=== PATIENT | male | born 2000 | race Caucasian/White ===

== ENCOUNTER 2022-10-05 19:21 | Emergency (ER) | payer OTHER ==
[2022-10-05 19:58] LABS: RAPID STREP SCREEN POSITIVE (Negative)
[2022-10-05] MEDS: DEXAMETHASONE 10 MG/ML VIAL PO STA (20:38)
--- NOTE | 2022-10-05 20:46 | ED Physician Documentation ---
History of Present Illness - Stated complaint Stated Complaint: THROAT PX - Chief complaint Chief Complaint: Resp - History obtained from History obtained from: Patient - Additonal information Additional information: 22-year-old male who presented with sore throat, body aches, fever which started fairly suddenly today. The patient states few days ago he had some mild cold symptoms but they seem to be resolving and then the symptoms came on suddenly today with of substantial increase in sore throat, body aches and fever. He has not had any respiratory distress, no chest pain, no abdominal pain, no nausea vomiting or diarrhea. He has not attempted any medication for this. No known sick contacts Review of Systems Ten Systems: 10 systems reviewed and negative (Except as per HPI) PD PAST MEDICAL HISTORY - Past Medical History Past Medical History: No - Present Medications Home Medications: Ambulatory Orders Medication Instructions Recorded Confirmed No Known Home Medications 10/05/22 10/05/22 - Allergies Allergies/Adverse Reactions: Allergies Allergy/AdvReac Type Severity Reaction Status Date / Time No Known Drug Allergies Allergy Verified 10/05/22 19:37 PD ED PE NORMAL - Vitals Vital signs reviewed: Yes - General General: Alert and oriented X 3, No acute distress, Well developed/nourished - HEENT HEENT: Atraumatic, Ears normal, Moist mucous membranes, Other (2+ tonsils bilaterally, trace exudate, mildly reddened. Uvula is midline, no signs of peritonsillar abscess) - Neck Neck: Supple, no meningeal sign, Other (Small bilateral anterior cervical and lymphadenopathy) - Cardiac Cardiac: RRR, No murmur - Respiratory Respiratory: No respiratory distress, Clear bilaterally - Derm Derm: Normal color, Warm and dry, No rash - Neuro Neuro: Alert and oriented X 3 Eye Opening: Spontaneous Motor: Obeys Commands Verbal: Oriented GCS Score: 15 Results - Vitals Vitals: Vital Signs - 24 hr 10/05/22 19:33 Temperature 37.5 C Heart Rate 98 Respiratory 18 Rate Blood Pressure 150/65 H O2 Saturation 99 Oxygen O2 Source Room air - Labs Labs: Laboratory Tests 10/05/22 19:40 Group A Strep Rapid POSITIVE H PD MEDICAL DECISION MAKING - ED course Complexity details: reviewed results, d/w patient ED course: Patient presented with sudden onset sore throat, body aches and fever today. We obtained a strep test which was positive and this is likely the Because of his symptoms. He has no cough or other URI symptoms at this time and is otherwise well-appearing, he has no signs of retropharyngeal abscess or peritonsillar abscess. I discussed with patient the treatment options for positive strep test which her 10 days of penicillin or amoxicillin or a shot of penicillin G and patient would like to take the shot as he states he is not reliable with medication. We will give him 1,200,000 units IM here and he will receive 10 mg of oral Decadron to help with his pain. He was advised that he can continue ibuprofen and Tylenol for sore throat over the next few days and he was encouraged to stay well-hydrated. I advised patient that he is contagious for next 24 hours and should stay home from work and/or school and avoid sharing food or cigarettes other people. Return precautions reviewed if new or worsening symptoms. Departure - Departure Disposition: 01 Home, Self Care Clinical Impression: Strep throat Condition: Good Instructions: ED Strep Pharyngitis Conf Comments: He presented with sore throat, body aches and fever. Here strep test was positive For strep throat Which can also cause body aches and fever. We gave you a single dose of steroids which can help with your throat pain and also a shot of penicillin which is one of the treatments for strep throat. You do not need any additional antibiotics as this is a long-acting antibiotic that you were given. You can continue to take ibuprofen or Tylenol for pain and recommend that he stay well-hydrated and get plenty of rest. You can return to work Or school after 24 hours. Forms: Activity restrictions
[2022-10-05] MEDS: CHERRY SYRUP 10 ML UDC PO ONE (20:53)
[2022-10-05] MEDS: PENICILLIN G BENZATHINE 600,000 UNIT/ML SYRINGE IM STA (20:53)
[2022-10-06 00:10] VITALS: BP 142/56
== END 2022-10-05 21:15 | disposition home or self-care (01) ==
LOC: ED 19:21
DX: J02.0 Streptococcal pharyngitis (principal)
CPT/HCPCS: 87430; 96372; 99282; 99283; A9270

== ENCOUNTER 2023-09-15 18:47 | Emergency (ER) | payer OTHER ==
[2023-09-15 19:10] VITALS: BP 139/59; O2SAT 100
[2023-09-15] MEDS ORDERED: FLUCONAZOLE 100 MG TABLET PO STA (21:09)
--- NOTE | 2023-09-15 21:12 | ED Physician Documentation ---
History of Present Illness - Stated complaint Stated Complaint: - Chief complaint Chief Complaint: General - History obtained from History obtained from: Patient - History of Present Illness Timing: Today Pain level max: 0 Pain level now: 0 - Additonal information Additional information: 23-year-old male presents to the emergency department with a scrotal rash for the past several days. Described as itchy. He is concerned about potential STDs. He states he did have sex with a new partner and did wear a condom. Nothing makes it better or worse. [place]. No dysuria, no urethral discharge. Review of Systems Constitutional: denies: Fever, Chills GI: denies: Nausea, Vomiting, Diarrhea Skin: denies: Rash Musculoskeletal: denies: Neck pain, Back pain Neurologic: denies: Headache PD PAST MEDICAL HISTORY - Past Medical History Past Medical History: No - Past Surgical History Past Surgical History: No - Present Medications Home Medications: Ambulatory Orders Medication Instructions Recorded Confirmed Nystatin/Triamcin 1 applic TP BID #1 each 09/15/23 [Nystatin-Triamcinolone Ointm] Terbinafine [Lamisil] 250 mg PO DAILY #14 tablet 09/15/23 - Allergies Allergies/Adverse Reactions: Allergies Allergy/AdvReac Type Severity Reaction Status Date / Time No Known Drug Allergies Allergy Verified 10/05/22 19:37 - Social History Does the pt smoke?: No Smoking Status: Never smoker Does the pt drink ETOH?: No Does the pt have substance abuse?: No - Immunizations Immunizations are current?: Yes - POLST Patient has POLST: No PD ED PE NORMAL - Vitals Vital signs reviewed: Yes - General General: Alert and oriented X 3, No acute distress - HEENT HEENT: PERRL, Moist mucous membranes - Neck Neck: Supple, no meningeal sign - Cardiac Cardiac: RRR, Strong equal pulses - Respiratory Respiratory: No respiratory distress, Clear bilaterally - Abdomen Abdomen: Soft, Non tender, Non distended - Male Male : Other (Normal-appearing penis, no discharge. No lymphadenopathy. There is erythema diffusely to the scrotum. No crepitus.) - Derm Derm: Warm and dry - Neuro Neuro: Alert and oriented X 3 - Psych Psych: Normal mood, Normal affect Results - Vitals Vitals: Vital Signs - 24 hr 09/15/23 18:55 Temperature 36.8 C Heart Rate 70 Respiratory 16 Rate Blood Pressure 139/59 H O2 Saturation 100 Oxygen O2 Source Room air - Labs Labs: Laboratory Tests 09/15/23 19:15 Chlam trachomat DNA PCR NEGATIVE N.gonorrhoeae DNA (PCR) NEGATIVE T. vaginalis (PCR) NEGATIVE PD Medical Decision Making - ED course Complexity details: reviewed results, re-evaluated patient, considered differential, d/w patient, d/w family ED course: Patient with what appears to be a fungal infection of the scrotum. No evidence of secondary cellulitis. No pain. No fevers. We will try on nystatin/triamcinolone cream. Oral terbinafine in case this is tinea cruris, atypical, was also given a dose of Diflucan here in case this is a candidal infection. Gonorrhea and Chlamydia testing are negative. This does not seem consistent with an STI. Does not appear to be a latex allergy. Patient will follow-up with his PCP for further care. Patient counseled regarding signs and symptoms for which I believe and urgent re-evaluation would be necessary. Patient with good understanding of and agreement to plan and is comfortable reji g home at this time This document was made in part using voice recognition software. While efforts are made to proofread this document, sound alike and grammatical errors may occur. Departure - Departure Disposition: 01 Home, Self Care Clinical Impression: Scrotal rash Condition: Good Instructions: ED Candidiasis Cutaneous Follow-Up: GITA DAILEY ARNP [Primary Care Provider] - Prescriptions: Terbinafine [Lamisil] 250 mg PO DAILY #14 tablet Nystatin/Triamcin [Nystatin-Triamcinolone Ointm] 1 applic TP BID #1 each Comments: Your prescriptions were sent to the [facility] pharmacy. We will trial you on 2 antifungal medications to see if this resolves your symptoms. Your STI testing is not yet resulted, we will call you if they are positive, but this does not ap pear consistent with an STI. As we discussed occasionally yeast infections can cause these reactions as well, your partner may want to be tested with her own physician. Forms: PCP List Discharge Date/Time: 09/15/23 21:35
[2023-09-15 21:50] LABS: CHLAMYDIA TRACHOMATIS DNA NEGATIVE (NEGATIVE); NEISSERIA GONORRHOEAE DNA NEGATIVE (NEGATIVE); TRICHOMONAS VAGINALIS DNA NEGATIVE (NEGATIVE)
== END 2023-09-15 21:35 | disposition home or self-care (01) ==
LOC: ED 18:47
DX: R21 Rash and other nonspecific skin eruption (principal)
CPT/HCPCS: 87491; 87591; 87661; 99283; A9270

== ENCOUNTER 2023-10-25 20:34 | Emergency (ER) | payer OTHER ==
[2023-10-25 20:52] VITALS: BP 130/66; O2SAT 99
[2023-10-25 22:19] LABS: B. PARAPERTUSSIS- RESP PCR PAN NOT DETECTED; B. PERTUSSIS- RESP PCR PANEL NOT DETECTED; C. PNEUMONIAE- RESP PCR PANEL NOT DETECTED; CORONAVIRUS 229E-RESP PCR NOT DETECTED; CORONAVIRUS HKU1-RESP PCR NOT DETECTED; CORONAVIRUS NL63-RESP PCR NOT DETECTED; CORONAVIRUS OC43-RESP PCR NOT DETECTED; HUMAN METAPNEUMOVIRUS NOT DETECTED; INFLUENZA A- RESP PCR PANEL NOT DETECTED; INFLUENZA B - RESP PCR PANEL NOT DETECTED; M. PNEUMONIAE- RESP PCR PANEL NOT DETECTED; PARAINFLUENZA VIRUS 1 NOT DETECTED; PARAINFLUENZA VIRUS 2 NOT DETECTED; PARAINFLUENZA VIRUS 3 NOT DETECTED; PARAINFLUENZA VIRUS 4 NOT DETECTED; RHINOVIRUS/ENTEROVIRUS DETECTED; RSV- RESP PCR PANEL NOT DETECTED; SARS-CoV-2 -RESP PCR PANEL NOT DETECTED
[2023-10-26] MEDS ORDERED: DEXAMETHASONE 10 MG/ML VIAL PO STA (00:25)
[2023-10-26] MEDS ORDERED: CHERRY SYRUP 10 ML UDC PO ONE (00:25)
--- NOTE | 2023-10-26 00:28 | ED Physician Documentation ---
PD HPI URI - Stated complaint Stated Complaint: BODY ACHES,COUGH - Chief complaint Chief Complaint: General - History obtained from History obtained from: Patient - History of Present Illness Timing - onset: How many days ago (7) Timing duration: Days (7) Timing details: Gradual onset, Still present Associated symptoms: Chills, Sweats, Nasal congestion, Rhinorrhea, Sore throat, Productive cough Improves by: Rest, Medication Similar symptoms before: Diagnosis (URI) Recently seen: Not recently seen - Additional information Additional information: 23-year-old Gavin Grover is on Accutane and has developed a cough and congestion. He has had significant enough coughing that he tried a cough suppressant which gave him some additional symptoms and he is concerned this may be from an interaction with Accutane. He reports 7 days of symptoms with coughing green phlegm. He does not have shortness of breath. He denies pain in his ears. He does have a bit of a sore throat. Despite being 1 week into the illness the patient feels his symptoms are worsening. Review of Systems Constitutional: reports: Myalgias, Fatigue. denies: Fever Eyes: denies: Decreased vision Ears: denies: Ear pain Nose: reports: Rhinorrhea / runny nose, Congestion Throat: reports: Sore throat Cardiac: denies: Chest pain / pressure, Palpitations Respiratory: reports: Cough. denies: Dyspnea GI: denies: Nausea, Vomiting, Constipation, Diarrhea : denies: Dysuria, Frequency Skin: denies: Rash Musculoskeletal: denies: Neck pain, Back pain, Extremity pain PD PAST MEDICAL HISTORY - Past Medical History Past Medical History: No - Past Surgical History Past Surgical History: No - Present Medications Home Medications: Ambulatory Orders Medication Instructions Recorded Confirmed ISOtretinoin [Amnesteem] 1 cap PO DAILY 10/25/23 10/25/23 Azithromycin [Zithromax] 250 mg PO DAILY #6 tablet 10/26/23 Benzonatate [Tessalon] 100 - 200 mg PO TID PRN #30 cap 10/26/23 - Allergies Allergies/Adverse Reactions: Allergies Allergy/AdvReac Type Severity Reaction Status Date / Time No Known Drug Allergies Allergy Verified 10/25/23 20:44 - Social History Does the pt smoke?: No Smoking Status: Never smoker Does the pt drink ETOH?: No Does the pt have substance abuse?: No - Immunizations Immunizations are current?: Yes - POLST Patient has POLST: No PD ED PE NORMAL - Vitals Vital signs reviewed: Yes (normal ) - General General: Alert and oriented X 3, No acute distress, Well developed/nourished, Other (voice is hoarse) - HEENT HEENT: Atraumatic, PERRL, EOMI, Ears normal, Moist mucous membranes, Other (mild posterior pharyngeal inflamation ) - Neck Neck: Supple, no meningeal sign, No bony TTP - Cardiac Cardiac: RRR, No murmur - Respiratory Respiratory: No respiratory distress, Clear bilaterally - Abdomen Abdomen: Soft, Non tender - Back Back: No CVA TTP, No spinal TTP - Derm Derm: Normal color, Warm and dry, No rash - Extremities Extremities: No deformity, No edema - Neuro Neuro: Alert and oriented X 3, career services coordinator 2-12 intact, No motor deficit, No sensory deficit, Normal speech Eye Opening: Spontaneous Motor: Obeys Commands Verbal: Oriented GCS Score: 15 - Psych Psych: Normal mood, Normal affect Results - Vitals Vitals: Vital Signs - 24 hr 10/25/23 20:44 Temperature 36.6 C Heart Rate 71 Respiratory 16 Rate Blood Pressure 130/66 O2 Saturation 99 Oxygen O2 Source Room air - Labs Labs: Laboratory Tests 10/25/23 20:18 Nasal Adenovirus (PCR) NOT DETECTED Nasal B. parapertussis DNA (PCR) NOT DETECTED Nasal Coronavir 229E PCR NOT DETECTED Nasal Coronavir HKU1 PCR NOT DETECTED Nasal Coronavir NL63 PCR NOT DETECTED Nasal Coronavir OC43 PCR NOT DETECTED Nasal Enterovir/Rhinovir PCR DETECTED A Nasal Influenza B PCR NOT DETECTED Nasal Influenza A PCR NOT DETECTED Nasal Parainfluen 1 PCR NOT DETECTED Nasal Parainfluen 2 PCR NOT DETECTED Nasal Parainfluen 3 PCR NOT DETECTED Nasal Parainfluen 4 PCR NOT DETECTED Nasal RSV (PCR) NOT DETECTED Nasal B.pertussis DNA PCR NOT DETECTED Nasal C.pneumoniae (PCR) NOT DETECTED [place] Human Metapneumo PCR NOT DETECTED Nasal M.pneumoniae (PCR) NOT DETECTED Nasal SARS-CoV-2 (PCR) NOT DETECTED PD Medical Decision Making - ED course Complexity details: considered differential, d/w patient ED course: 23-year-old male with cough and congestion has rhinovirus. He is on day 7 of his illness and the expectation would be improvement by this time and he is coughing up copious amounts of green phlegm. I have given him a dose of dexamethasone for his voice we will place him on some Tessalon Perles and give him a Z-Donnie to clean up his secondary infection. Departure - Departure Disposition: 01 Home, Self Care Clinical Impression: Condition involving rhinovirus Condition: Stable Instructions: Cold Virus Follow-Up: GITA DAILEY ARNP [Primary Care Provider] - Prescriptions: Benzonatate [Tessalon] 100 - 200 mg PO TID PRN #30 cap PRN Reason: Cough Azithromycin [Zithromax] 250 mg PO DAILY #6 tablet Comments: Gavin, today we found rhinovirus in your nasal secretions and this is the common cold. We would expect this to be nearly resolved at day 7 of the illness. You are coughing up green phlegm and we will place you on an antibiotic for that reason. I have E scribed a cough suppressant some Tessalon Perle to the [facility] in [place]. I did not find an interaction with either of these medicines with your Accutane.
== END 2023-10-26 00:47 | disposition home or self-care (01) ==
LOC: ED 20:34
DX: B34.8 Other viral infections of unspecified site (principal); Z11.52 Encounter for screening for COVID-19
CPT/HCPCS: 87633; 99283; A9270

== ENCOUNTER 2024-05-05 07:09 | Outpatient (CLI) | payer OTHER ==
--- NOTE | 2024-05-06 14:07 | MRI Report ---
Shoulder RT WO CLINICAL HISTORY: 24 years of age, Male, RT SHOULDER PAIN.. Comparison: No priors available Technique: Multiplanar, multisequence MRI of the right shoulder was performed without intravenous co ntrast. IV Contrast: Not Administered. Findings: Osseous acromial outlet: The acromioclavicular joint is unremarkable. Type II acromion on sagittal im aging. No os acromiale. No significant subacromial/subdeltoid bursal fluid. Rotator cuff muscles and tendons: The supraspinatus, infraspinatus, subscapularis, and teres minor ar e intact without evidence of tendinosis or tear. Muscles are intact without evidence of atrophy or edema. Labral and capsular structures: The visualized labrum appears intact on limited non-arthrogram sequen saleem. No paralabral cyst. Biceps tendon and anchor: The extra-articular biceps tendon is unremarkable. The intra-articular joselyn ps tendon is not well visualized, likely secondary to patient positioning. Osseous and cartilaginous structures: Bone marrow signal is within normal limits. No fracture or disl ocation. No focal chondral defects. Miscellaneous: No significant glenohumeral effusion. Mild subcoracoid bursitis. No intra-articular b odies. The remaining muscles are normal in bulk without evidence of atrophy or edema. IMPRESSION: Mild subcoracoid bursitis. Reviewed by: Court Plummer MD on 05/06/2024 2:06 PM PDT Approved by: Court Plummer MD on 05/06/2024 2:06 PM PDT Station ID: [id number]
== END 2024-05-05 07:10 | disposition home or self-care (01) ==
LOC: DI 07:09
PROVIDERS: ATTEND Nurse Practitioner Family
DX: M75.51 Bursitis of right shoulder (principal)

== ENCOUNTER 2024-06-20 07:49 | Outpatient (CLI) | payer OTHER | END 2024-06-20 07:50 | disposition home or self-care (01) | LOC: DI 07:49 | PROVIDERS: ATTEND Family Medicine | DX: R01.1 Cardiac murmur, unspecified (principal) | CPT/HCPCS: 93307 ==

== ENCOUNTER 2024-07-25 11:57 | Outpatient (CLI) | payer OTHER ==
--- NOTE | 2024-07-25 21:55 | Ultrasound Report ---
PROCEDURE: Chest INDICATIONS: BACK MASS TECHNIQUE: Real-time scanning was performed, targeting the patient directed area of palpable concern. Image docu mentation obtained. COMPARISON: None. FINDINGS: Multiple grayscale and color Doppler images of the patient directed palpable area concern localizing to the lower midline back correlates with a oval, wider than tall isoechoic to subcutaneous fat mass measuring 4.2 x 0.8 x 3.6 cm. No suspicious vascularity. Normal appearance of overlying skin. No evid ence for invasion into the underlying the cutaneous soft tissues. No abnormal fluid collection. IMPRESSION: Palpable area concern correlates with a lipoma. Recommend continued clinical surveillance and follow- up imaging as needed. Reviewed by: Morgan Thompson MD on 07/25/2024 8:53 PM [facility]ISMA Approved by: Morgan Thompson MD on 07/25/2024 8:53 PM CHARISMA Station ID: [id number]
== END 2024-07-25 11:58 | disposition home or self-care (01) ==
LOC: DI 11:57
PROVIDERS: ATTEND Nurse Practitioner Family
DX: D17.1 Benign lipomatous neoplasm of skin and subcutaneous tissue of trunk (principal)